=== PATIENT | male | born 1965 | race Caucasian/White ===

== ENCOUNTER 2019-08-16 13:12 | Emergency (ER) | payer BC, SELFPAY ==
[2019-08-16 13:22] VITALS: BP 186/103; PULSE 83; RESP 18; TEMP 36.3; O2SAT 98
--- NOTE | 2019-08-16 13:26 | ED.ABDPAIN ---
HPI - Abdominal Pain General Chief Complaint: Abdominal Pain Stated Complaint: abdominal pain Time Seen by Provider: 08/16/19 13:22 Source: patient and RN notes reviewed Mode of arrival: EMS Limitations: no limitations History of Present Illness HPI narrative: A 54 y/o male presents to the ED with severe, worsening, periumbilical ABD pain beginning at 10:30 AM this morning. He states that he has had a umbilical hernia but that today was the first time it began to hurt. He reports associated nausea and vomiting. He notes that he also has a hx of diverticulitis but denies it feeling the same. He also notes that movement aggravates his pain and that he took some Pepto Bismol this morning but denies it alleviating her symptoms. He also denies any diarrhea, cough, nasal congestion, sore throat, lightheadedness, dizziness, hematuria, dysuria, blood in his vomiting, or blood in his stools. MD elicited complaint: abdominal pain Pertinent past history: diverticulitis Onset (ago): hour(s) Pain Consistency: other (worsening) Location: periumbilical Severity: severe Exacerbating factors: movement Relieving factors: nothing Associated symptoms: nausea and vomiting Related Data Allergies Allergy/AdvReac Type Severity Reaction Status Date / Time No Known Allergies Allergy Verified 08/16/19 13:25 Review of Systems Review of Systems: All systems reviewed & are unremarkable except as noted in HPI and below ENT: Denies nasal congestion and Denies sore throat Cardiovascular: Cardiovascular: Denies lightheadedness Respiratory: Respiratory: Denies cough Gastrointestinal: Gastrointestinal: Reports abdominal pain (periumbilical), Denies hematochezia, Denies diarrhea, Reports nausea, Reports vomiting and Denies hematemesis Genitourinary: Genitourinary: Denies hematuria and Denies dysuria Neurologic: Denies dizziness [facility] Past Medical History Medical History (Updated 08/16/19 @ 14:47 by Conner Alfredo PA-C) Arthritis Diverticulitis DM (diabetes mellitus) Hernia Hx of gout Neuropathy Psoriasis Sciatic nerve disease Surgical History Surgical History No history of previous surgery Family History Family History Mother Hypertension Other Diabetes mellitus Social History Social History Smoking status: Never smoker Alcohol intake: current Gender identity (if verbalized by the patient): Male Procedures Other Procedure Procedure 1: Other Procedure: Patient's umbilical hernia was easily reduced manually Course Course Emergency Course: Patient in the room at this time resting comfortably afebrile nontoxic-appearing no distress Vital Signs Vital signs: Vital Signs Temperature 97.3 F L 08/16/19 13:22 Pulse Rate 83 08/16/19 13:22 Respiratory Rate 18 08/16/19 13:22 Blood Pressure 186/103 H 08/16/19 13:22 Pulse Oximetry 98 08/16/19 13:22 Temperature 97.3 F L 08/16/19 13:22 Pulse Rate 83 08/16/19 13:22 Respiratory Rate 18 08/16/19 13:22 Blood Pressure 186/103 H 08/16/19 13:22 Pulse Oximetry 98 08/16/19 13:22 MDM - Abdominal Pain MDM Narrative Medical decision making narrative: Patient with umbilical hernia that was easily reduced with resolution of symptoms will be discharged home no high risk changes in the blood work felt appropriate for outpatient reevaluation agreeing to follow-up as directed provided with reasons to return Lab Data Result diagrams: 08/16/19 13:32 08/16/19 13:32 Labs: Lab Results 08/16/19 08/16/19 Range/Units 13:32 13:32 WBC 7.7 (4.5-10.0) K/mm3 RBC 4.44 L (4.6-6.20) M/mm3 Hgb 14.9 (14.0-18.0) g/dL Hct 39.7 L (42.0-52.0) % MCV 89.4 (80-100) fl MCH 33.6 (26-34) pg MCHC 37.5 H (32-36) g/dl RDW 12.2 (11.5-14.5) % Plt Count 130 L (150-375) k/mm3 MPV
[2019-08-16 13:41] LABS: Basophils Percent Auto 0.5 % (0.2-1.2); Eosinophils Absolute Auto 0.2 K/mm3 (0-0.3); Eosinophils Percent Auto 2.3 % (0-4.4); Hematocrit 39.7 % (42.0-52.0); Hemoglobin 14.9 g/dL (14.0-18.0); Immature Granulocyte Absolute 0.04 K/mm3 (0.00-0.031); Immature Granulocyte Percent A 0.5 % (0-0.5); Immature Platelet Fraction Pct 10.5 % (0.9-11.2); Lymphocytes Absolute Auto 1.45 K/mm3 (0.9-3.2); Lymphocytes Percent Auto 18.7 % (18.3-44.2); Mean Corpuscular HGB Conc 37.5 g/dl (32-36); Mean Corpuscular Hemoglobin 33.6 pg (26-34); Mean Corpuscular Volume 89.4 fl (80-100); Mean Platelet Volume 11.6 fl (7.4-10.4); Monocytes Absolute Auto 0.5 K/mm3 (0.1-0.6); Monocytes Percent Auto 6.3 % (2.6-8.5); Neutrophils Absolute Auto 5.5 K/mm3 (1.3-6.7); Neutrophils Percent Auto 71.7 % (45.5-73.1); Platelet Count Result 130 k/mm3 (150-375); Red Blood Count 4.44 M/mm3 (4.6-6.20); Red Cell Distribution Width 12.2 % (11.5-14.5); White Blood Count 7.7 K/mm3 (4.5-10.0)
[2019-08-16 13:55] LABS: Alanine Aminotransferase 34 U/L (4-50); Albumin Level 4.8 g/dL (3.5-5.1); Alkaline Phosphatase 53 U/L (38-126); Aspartate Amino Transferase 43 U/L (17-59); Bilirubin,Total 1.7 mg/dL (0.2-1.3); Blood Urea Nitrogen 17 mg/dL (9-20); Calcium 9.4 mg/dL (8.4-10.2); Carbon Dioxide 23 mmol/L (22-30); Chloride 104 mmol/L (98-107); Estimated Glomerular Filt Rate > 60; Glucose 169 mg/dL (75-110); Lipase 103 U/L (23-300); Potassium 4.4 mmol/L (3.4-5.0); Sodium 135 mmol/L (137-145)
[2019-08-16] MEDS: ONDANSETRON INJ 4 MG/2 ML VIAL IV PUSH (13:57)
[2019-08-16] MEDS: SODIUM CHLORIDE 0.9% IV 1,000 ML 999 ML IV CONT (13:57)
[2019-08-16] MEDS: FAMOTIDINE 20 MG/2 ML VIAL IV PUSH (13:57)
[2019-08-16 15:09] VITALS: BP 172/95; PULSE 71; RESP 16; O2SAT 99
[2019-08-16 15:26] LABS: Add Urine Microscopic? YES; Appearance Urine Clear (Clear); Bacteria Urine Trace /hpf; Bilirubin Urine Negative (Negative); Blood Urine Negative (Negative); Color Urine Yellow (Yellow); Glucose Urine UA 1+ mg/dL (Negative); Ketones Urine Negative (Negative); Leukocyte Esterase Ur Negative LEU/UL (Negative); Mucus Urine Moderate /lpf; Nitrate Urine Negative (Negative); Protein Urine Negative (Negative); RBC Urine 0-2 /hpf (0-2); Specific Grav Ur 1.027 (1.001-1.035); Squamous Epithelial Cell Urine Occasional /hpf (Few); Urobilinogen Urine Negative mg/dL (<2.0); WBC Urine 0-3 /hpf
== END 2019-08-16 15:12 | disposition home or self-care (01) ==
PROVIDERS: Emergency Medicine Emergency Medical Services; Emergency Provider Emergency Medicine; PCP Family Medicine
DX: K42.9 Umbilical hernia without obstruction or gangrene (principal); M19.90 Unspecified osteoarthritis, unspecified site; E11.9 Type 2 diabetes mellitus without complications; M10.9 Gout, unspecified; G62.9 Polyneuropathy, unspecified
CPT/HCPCS: 36415; 80053; 81001; 83690; 85025; 85055; 96361; 96374; 96375; 99284; J2405; J7030

== ENCOUNTER 2019-08-22 01:03 | Day surgery (SDC) | payer BC, SELFPAY ==
[2019-08-21 13:51] VITALS: BMI 35.1
--- NOTE | 2019-08-22 13:02 | ECG_ITS ---
Measurements Intervals [place] Rate: 69 P: 38 IN: 160 QRS: -3 QRSD: 82 T: 24 QT: 380 QTc: 408 Interpretive Statements SINUS RHYTHM INFERIOR INFARCT, AGE INDETERMINATE BASELINE ARTIFACT- I, II, AVR, AVL, AVF ABNORMAL ECG Electronically Signed On 08-22-2019 13:23:54 CDT by Dre Whitehead D.O.
[2019-08-22] MEDS: LACTATED RINGERS 1,000 ML 30 ML IV CONT (13:30)
[2019-08-22 13:40] LABS: Glucose Point of Care 110 (65-105)
[2019-08-22 14:23] VITALS: BP 144/88; PULSE 72; RESP 16; TEMP 36.4; O2SAT 100
--- NOTE | 2019-08-22 14:54 | WPDANESEPPF ---
Anes - Initial Pre Proc Eval Procedure: Operation Date: 08/22/19 14:30 Proposed Procedures p Repair Incarcerated Umbilical Hernia with Mesh - Kj Dugan MD Date/Time: 08/22/19 14:54 Surgeon: Kj Dugan MD Pre Op Diagnosis: incarcerated umbilcal hernia Patient Data Age: 54 Gender: M Height: 5 ft 10 in Weight: 109.6 kg Last Vital Signs Temp 36.4 C 08/22/19 14:23 Pulse 72 08/22/19 14:23 Resp 16 08/22/19 14:23 BP 144/88 H 08/22/19 14:23 Pulse Ox 100 08/22/19 14:23 Allergies Allergy/AdvReac Type Severity Reaction Status Date / Time No Known Allergies Allergy Verified 08/22/19 14:22 Home Medications Medication Instructions Recorded Confirmed Type metformin 1,000 mg tablet 1,000 mg PO BID #60 tablet 05/03/19 08/22/19 Rx calcium carbonate 200 mg calcium 200 mg PO .PRN tablet 08/21/19 08/22/19 History (500 mg) chewable tablet ddbvdbsz-czg-whzab acid 300 1 tablet PO DAILY 08/21/19 08/22/19 History mcg-lycopene 600 mcg-lutein 300 mcg tablet Laboratory Tests 08/22/19 13:38 POC Capillary Glucose 110 mg/dl mg/dl (65-105) Patient hx anesthesia problems: none Family hx anesthesia problems: none PMFSH Past Medical History Medical History Arthritis Diverticulitis DM (diabetes mellitus) Hernia Hx of gout Neuropathy Psoriasis Sciatic nerve disease Surgical History Surgical History No history of previous surgery Family History Family History Mother Hypertension Breast cancer Sibling Hypoglycemia Other Diabetes mellitus Social History Social History Smoking status: Never smoker Alcohol intake: current Gender identity (if verbalized by the patient): Male Anes - Eval Final PreProcedure Day of Procedure 08/22/19 14:54 Patient weight: obese Heart: regular rate and rhythm Lungs: clear to auscultation Airway: Mallampati scale class II Neurological: alert and oriented Last oral intake: >/= 8 hours ASA classification: III Emergent: no Anesthetic plan: proceed Anesthesia type and monitoring: general GIVS and standard monitoring Informed Consent: The patient's anesthetic plan and its attendant risks and benefits were discussed with the patient/family/POA. Questions were solicited and answers provided to the satisfaction of the patient/family/POA.
--- NOTE | 2019-08-22 15:44 | SUR.PREOP ---
1410-PT AWARE PRIOR SURGERY DELAYS PT ~1 1/2 HOURS. PT WILL LET DAUGHTER KNOW VIA TEXT. 1545-UP TO BR TO VOID.
--- NOTE | 2019-08-22 15:55 | WPDHPUPDATE1 ---
History and Physical Update Update Date/Time: 08/22/19 15:55 History and Physical has been reviewed, including an updated exam of the patient. There are NO changes in the patient's condition. Risks, benefits, and alternatives have been discussed and questions answered. Patient agrees to proceed with procedure.
[2019-08-22] MEDS: ceFAZolin 2 GM/D5W 50 ML 2 GM/50 ML BAG IVPB (16:02)
--- NOTE | 2019-08-22 16:08 | PM.PROC ---
Procedure Note - Detailed Date of procedure: 08/22/19 Pre-op diagnosis: incarcerated umbilcal hernia IncarceratedUmbilical hernia Post-op diagnosis: same Procedure performed: Umbilical hernia repair with 4.6 cm Parietex underlay mesh Description of procedure: Patient was taken to the operating room and IV sedation was administered. Prep and drape was carried out. The proposed incision along the lower margin of the umbilicus was marked on the skin. Local anesthetic was infiltrated into the skin and the deeper subcutaneous tissues. Incision was made and dissection was carried down through the skin and to the hernia sac. The sac was then dissected free from the umbilical skin and the surrounding subcutaneous tissues. It was dissected down to its neck. Additional local anesthetic was infiltrated into the neck and the fascia surrounding the neck of the hernia sac. The sac was then amputated at its neck. The subcutaneous was undermined around the hernia defect. Additional local was infiltrated around the fascia. I placed a finger inside the hernia defect and checked for any abdominal wall adhesions in the area. None were found. No other hernias were noted. A 4.6 cm Parietex bear [place] was chosen. It was folded and placed in the defect. Once it symmetrically covered the defect, I placed cranial and caudal transfascial sutures of 0 Ethibond. These sutures were placed in such a fashion that, when tied, they would advance the edges of the hernia defect towards 1 another. These sutures were tied and had the desired effect. I then closed the hernia defect with gvkajg-nc-dpjjy mattress sutures of 0 Ethibond. The repair looked quite satisfactory. I then infiltrated additional local all around the areas of the repair. The umbilical skin was tacked to the fascia with 3 0 Vicryl suture. The subcutaneous was closed with 3 0 Vicryl. Subcuticular interrupted 4 O Vicryl skin stitches were placed. The skin was then closed with running 4 0 Monocryl subcuticular suture. Wound was dressed with Exofin surgical adhesive. The patient was awakened and taken to recovery in good condition. Counts were correct x2. Implants: 4.6 cm Parietex hernia mesh Anesthesia: MAC and local (0.5% Marcaine with Exparel) Surgeon: Kj Dugan MD Staff Certified Nurse Midwife: Chata PADILLA Estimated blood loss (mL): 5 Drains: No Packing: No Pathology: none sent Complications: None Condition: stable Disposition: same day Findings: 12 millimeter hernia defect
[2019-08-22 16:55] VITALS: BP 109/65; PULSE 74
[2019-08-22 17:25] VITALS: BP 163/90; PULSE 67
--- NOTE | 2019-08-22 17:29 | SUR.PHASEII ---
1710 Called pt's daughter to update her and she said she will head up here to tow picker
[2019-08-22 17:53] VITALS: BP 154/90; PULSE 61
[2019-08-22 18:16] VITALS: BP 162/84; PULSE 62
== END 2019-08-22 18:22 | disposition home or self-care (01) ==
PROVIDERS: PCP Family Medicine; Visit Provider Surgery
PROC: (CPT 49587; principal; 2019-08-22 14:30)
DX: K42.0 Umbilical hernia with obstruction, without gangrene (principal); E11.40 Type 2 diabetes mellitus with diabetic neuropathy, unspecified; Z79.84 Long term (current) use of oral hypoglycemic drugs; E66.9 Obesity, unspecified; Z68.34 Body mass index [BMI] 34.0-34.9, adult
CPT/HCPCS: 49587; 93005; C1781; C9290; J0690; J2250; J2704; J3010; J7120

== ENCOUNTER 2023-10-24 10:57 | Emergency (ER) | payer OTHER, SELFPAY ==
[2023-10-24 11:10] VITALS: BP 165/88; PULSE 75; RESP 14; TEMP 36.5; O2SAT 100
--- NOTE | 2023-10-24 11:35 | ED.EAR ---
HPI - Ear Problem General Chief complaint: Ear Stated complaint: Bilateral Ear Irritation Source: patient Mode of arrival: ambulatory Limitations: no limitations History of Present Illness HPI Narrative: Patient presents for evaluation of bilateral ear discomfort. Three days ago he noticed a popping sensation his right ear. He experienced increased pressure in the ears with associated muffled hearing. Denies any drainage from the ear. He also has sinus congestion, clear rhinorrhea and nonproductive cough. No fever, chills, nausea, vomiting or diarrhea. no recent sick contacts to his knowledge. He is not taking any medications to assist with the symptoms. Related Data Home Medications Medication Instructions Recorded Confirmed vkekkmcw-jy-gwdnv 300 mcg-K 60 1 tablet PO DAILY 08/21/19 10/24/23 mcg-lycop 600 mcg-lutein 300 mcg tablet (Centrum Silver Ultra Men's) ascorbic acid (vitamin C) 500 mg 500 mg PO DAILY 06/12/21 10/24/23 tablet ferrous sulfate 325 mg (65 mg 325 mg PO DAILY 06/12/21 10/24/23 iron) tablet (Feosol) Allergies Allergy/AdvReac Type Severity Reaction Status Date / Time No Known Allergies Allergy Verified 10/24/23 11:01 Review of Systems Review of Systems: CONSTITUTIONAL: Denies fever, chills, or sweats. EYES: Denies visual changes, redness, or discharge. ENT: Reports sinus congestion, clear rhinorrhea, pressure in the ears, muffled hearing. Denies any sore throat or drainage from the ears. CARDIOVASCULAR: Denies chest pain, palpitations, or edema. RESPIRATORY: Reports nonproductive cough. Denies shortness of breath. GASTROINTESTINAL: Denies abdominal pain, nausea, vomiting, or diarrhea. GENITOURINARY: Denies dysuria or hematuria. SKIN: Denies rash or itching. MUSCULOSKELETAL: Denies back pain, joint pain, or myalgia. NEUROLOGIC: Reports frontal headache. Denies numbness, dizziness, or weakness. PSYCHIATRIC: Denies anxiety or depression. [facility] Past Medical History Medical History Arthritis BMI over 35 Diverticulitis DM (diabetes mellitus) Hernia Hx of gout Incarcerated umbilical hernia Neuropathy Psoriasis Sciatic nerve disease Surgical History Surgical History No history of previous surgery Family History Family History Mother Hypertension Breast cancer Sibling Hypoglycemia Father Emphysema lung Other Diabetes mellitus Social History Social History Smoking status: Former smoker Second hand tobacco smoke exposure: No Alcohol intake: current Alcohol use details: Occasional/social alcohol use Substance use: never Substance use type: does not use Living arrangements: with family Occupation/Education: occupation Additional occupation/education comments: [employer] Gender identity (if verbalized by the patient): Male Exam Narrative: GENERAL: Well-appearing, well-nourished, and in no acute distress. HEAD: Normocephalic, atraumatic. EYES: PERRLA and EOMI. ENT: Nares clear, no rhinorrhea or epistaxis. Mucous membranes moist. Oropharynx without tonsillar hypertrophy exudate or other lesions. Bilateral tympanic membranes are bulging. NECK: Supple. No adenopathy or masses. No carotid bruits or JVD CHEST: Clear to auscultation. No respiratory distress. No wheezes rales or rhonchi HEART: Regular rate and rhythm. No murmur heard. Normal peripheral pulses. ABDOMEN: Soft, nontender, nondistended, normal active bowel sounds. EXTREMITIES: Normal range of motion. No edema. SKIN: Warm, dry, no rash. NEURO: No focal deficits. Alert and oriented x3. PSYCH: Normal mood and affect. Course Course Emergency Course: This is a 58-year-old male who
== END 2023-10-24 11:35 | disposition home or self-care (01) ==
PROVIDERS: Emergency Provider Nurse Practitioner; PCP Family Medicine
DX: H66.93 Otitis media, unspecified, bilateral (principal); Z87.891 Personal history of nicotine dependence; M19.90 Unspecified osteoarthritis, unspecified site; M10.9 Gout, unspecified; E11.40 Type 2 diabetes mellitus with diabetic neuropathy, unspecified; L40.9 Psoriasis, unspecified
CPT/HCPCS: 99213; G0463

== ENCOUNTER 2024-08-13 12:41 | Emergency (ER) | payer BC, SELFPAY ==
[2024-08-13 12:47] VITALS: BP 149/82; PULSE 78; RESP 19; TEMP 36.3; O2SAT 100
--- NOTE | 2024-08-13 13:07 | ED_ITS ---
HPI - General Adult General Chief complaint: Skin/Abscess/Foreign Body Stated complaint: Left Hand Wound Check Time Seen by Provider: 08/13/24 13:05 Source: patient, RN notes reviewed and old records reviewed Mode of arrival: ambulatory Limitations: no limitations History of Present Illness HPI narrative: 59-year-old male presents to the [facility] with complaints of palmar aspect left hand pain. Just below the thumb. States that started , 3 days ago. Scabbed over area or open area is 0.7 x 0.7 cm. Redness without fluctuance is 1 x 1.25 cm. Area is raised, tender, firm. No fluctuance noted. No drainage noted. Warm to touch full range of motion noted Onset (ago): day(s) (3) Related Data Home Medications ?Medication ?Instructions ?Recorded ?Confirmed ?Last Taken ?Type jmtlcrbh-mq-tajne 300 mcg-K 60 1 tablet PO DAILY 08/21/19 06/06/24 08/21/19 History mcg-lycop 600 mcg-lutein 300 mcg tablet (Centrum Silver Ultra Men's) metformin 500 mg tablet,extended mg PO 08/13/24 Unknown History release 24 hr Allergies Allergy/AdvReac Type Severity Reaction Status Date / Time No Known Allergies Allergy Verified 08/13/24 12:46 Review of Systems 2 Review of Systems: All systems reviewed & are unremarkable except as noted in HPI and below Constitutional: Constitutional: Reports no additional constitutional complaints ENT: Reports system reviewed and no additional complaints, except as documented Cardiovascular: Cardiovascular: Reports no additional cardiovascular complaints, Denies chest pain and Denies dyspnea Respiratory: Respiratory: Reports no additional respiratory complaints, Denies chest congestion, Denies cough and Denies dyspnea Musculoskeletal: Musculoskeletal: Reports as per HPI Integumentary/Breasts: Skin/Breast: Reports as per HPI PMFSH Past Medical History Medical History Uncontrolled diabetes mellitus Elevated blood pressure reading without diagnosis of hypertension BMI over 35 Incarcerated umbilical hernia Hernia Diverticulitis Arthritis Psoriasis Neuropathy DM (diabetes mellitus) Hx of gout Sciatic nerve disease Surgical History Surgical History No history of previous surgery Family History Family History Mother Hypertension Breast cancer Sibling Hypoglycemia Father Emphysema lung Other Diabetes mellitus Social History Social History Smoking status: Former smoker Second hand tobacco smoke exposure: No Alcohol intake: current Alcohol use details: Occasional/social alcohol use Substance use: never Substance use type: does not use Living arrangements: with family Occupation/Education: occupation Additional occupation/education comments: [employer] Gender identity (if verbalized by the patient): Male Comments At the time of my signature, I reviewed and agree with the nursing past medical, surgical, social, and family history. There is no relevant family history pertinent to the patient complaint. Exam 2 Const: General: cooperative, healthy appearing, comfortable, no acute distress, well developed, alert and well nourished Nutritional Appearance: w ell nourished Orientation/consciousness: patient oriented x3 Limitations: no limitations HENMT: Head: normal to inspection Eyes: General: appearance normal, both eyes and all related structures A lignment and Position: alignment normal Neck: Neck: normal visual inspection, full ROM, no lymphadenopathy and no meningeal signs Chest: Chest palpation & inspection: normal inspection of the chest Resp: Effort & Inspection: normal respiratory effort and able to speak in complete sentences Cardio: Rate: regular rate Skin: General skin exam: normal color Neuro: General: patient oriented x3, gait normal, moves all extremities and no meningeal signs Cognition (Neuro): normal cognition Speech: normal speech Gait exam (Neuro): Normal gait present Extrem: General: normal to inspection, full ROM, capillary refill normal and normal gait Left upper extremity: hand normal capillary refill, neuromotor exam normal Details: wrist extension normal, thumb opposition normal, thumb IP flexion normal, thumb ADduction normal and fingers 2-5 ABduction normal, neurosensory exam normal, tenderness of the palm on the radial aspect, vascular exam radial pulse present and normal capillary refill, normal ROM of fingers, warmth and swelling Hand/finger images: 1. 0.7 x 0.7 cm scabbed area, redness 1 x 1.25 firm area, swollen no fluctuance, no discharge. Full range of motion, sensation intact. Does have increased warmth. Not circumferential. Psych: Appearance: grossly normal and well kempt Mental Status: mental status grossly normal Speech and movement: Normal speech and movement present and Clear speech present Affect: normal affect Attitude: cooperative Course Course Level of Care: Express Care Visit Vital Signs Vital signs: Vital Signs Temperature 97.3 F L 08/13/24 12:47 Pulse Rate 78 08/13/24 12:47 Respiratory Rate 19 08/13/24 12:47 Blood Pressure 149/82 H 08/13/24 12:47 Pulse Oximetry 100 08/13/24 12:47 Oxygen Delivery Room Air 08/13/24 12:47 Temperature 97.3 F L 08/13/24 12:47 Pulse Rate 78 08/13/24 12:47 Respiratory Rate 19 08/13/24 12:47 Blood Pressure 149/82 H 08/13/24 12:47 Pulse Oximetry 100 08/13/24 12:47 Oxygen Delivery Room Air 08/13/24 12:47 Reviewed Medical Decision Making MDM Narrative Medical decision making narrative: Patient sitting comfortably in exam room. Nontoxic, vitals stable. Patient in no acute distress Patient presents for Wound for 3 days. Will cover with antibiotic, soaking in warm soapy water Epson salt. Discussed signs did proceed to the emergency room and stressed the importance of following up with primary care provider. Patient verbalized understanding Discharge instructions reviewed with patient, as well as provided in writing per nursing staff. The instructions also include specific and strict return/GO TO THE ER as well as f/u information. All questions have been answered, and the patient deny any further questions with discharge and discharge plan. Some parts of this dictation were generated by voice recognition software and may contain typographical and/or grammatical inaccuracies. Differential Diagnosis Differential Diagnosis: abscess, cellulitis Medical Records Medical records reviewed: Yes I reviewed the external patient's medical records. Vital Signs Vital Signs: Vital Signs Temperature 97.3 F L 08/13/24 12:47 Pulse Rate 78 08/13/24 12:47 Respiratory Rate 19 08/13/24 12:47 Blood Pressure 149/82 H 08/13/24 12:47 Pulse Oximetry 100 08/13/24 12:47 Oxygen Delivery Room Air 08/13/24 12:47 Temperature 97.3 F L 08/13/24 12:47 Pulse Rate 78 08/13/24 12:47 Respiratory Rate 19 08/13/24 12:47 Blood Pressure 149/82 H 08/13/24 12:47 Pulse Oximetry 100 08/13/24 12:47 Oxygen Delivery Room Air 08/13/24 12:47 Reviewed Lab Data Lab results reviewed: Yes I reviewed the patient's lab results. Labs: Reviewed Critical Care Time Critical Care Time Critical Care Time: No Discharge Plan Discharge Clinical Impression: Wound cellulitis Patient Disposition: Home, Self-Care Condition: Stable Instructions: Antibiotic Form, Cellulitis (ED) Additional Instructions: soak twice daily for 15-20 minutes in warm soapy water and Epson salt. Pat dry. Take antibiotic as prescribed follow-up with your primary care provider this week for a wound check for new or worsening symptoms please proceed to the nearest emergency room Patient Language: Welsh Prescriptions: New clindamycin HCl 300 mg capsule 300 mg PO TID 7 Days Qty: 21 0RF Rx Instructions: TAKE WITH 150 MG clindamycin HCl 150 mg capsule 150 mg PO TID 7 Days Qty: 21 0RF Rx Instructions: TAKE WITH 300 MG No Action metformin 500 mg tablet extended release 24 hr PO Centrum Silver Ultra Men's 300-600-300 mcg tablet 1 tablet PO DAILY sildenafil [Viagra] 50 mg tablet 50 mg PO DAILY PRN (Reason: sexual activity) Qty: 10 0RF Rx Instructions: administer 30 minutes to 4 hours before activity (DME) FreeStyle Jennifer 2 Eolia Misc See Rx Instructions .Route Qty: 1 0RF Rx Instructions: As directed (DME) FreeStyle Jennifer 2 Sensor Kit See Rx Instructions .Route Qty: 2 2RF Rx Instructions: As directed Farxiga 10 mg tablet 10 mg PO DAILY Qty: 90 2RF rosuvastatin [Crestor] 10 mg tablet 10 mg PO DAILY Qty: 90 4RF Mounjaro 2.5 mg/0.5 mL pen injector 2.5 mg subcut WEEKLY Qty: 2 2RF Rx Instructions: for 4 weeks gabapentin 300 mg capsule 900 mg PO BID Qty: 90 2RF Rx Instructions: 1 in the a.m and 2 at night Follow-up/Referrals: Stevo Armstrong MD [Primary Care Provider] - 3 Days (express care follow up. Wound check. left hand) Stand Alone Forms: Work/School Release IP Time of Disposition: 13:15
== END 2024-08-13 13:20 | disposition home or self-care (01) ==
PROVIDERS: Emergency Provider Nurse Practitioner; PCP Family Medicine
DX: S61.402A Unspecified open wound of left hand, initial encounter (principal); L03.114 Cellulitis of left upper limb; X58.XXXA Exposure to other specified factors, initial encounter; E11.40 Type 2 diabetes mellitus with diabetic neuropathy, unspecified; M19.90 Unspecified osteoarthritis, unspecified site; L40.9 Psoriasis, unspecified; M10.9 Gout, unspecified
CPT/HCPCS: 99213; G0463

== ENCOUNTER 2024-10-02 11:04 | Outpatient (CLI) | payer BC, SELFPAY ==
[2024-10-02 11:21] LABS: Basophils Absolute Auto 0.1 K/mm3 (0.0-0.1); Basophils Percent Auto 0.7 % (0.2-1.2); Eosinophils Absolute Auto 0.2 K/mm3 (0-0.3); Eosinophils Percent Auto 2.5 % (0-4.4); Hematocrit 36.3 % (42.0-52.0); Hemoglobin 13.3 g/dL (14.0-18.0); Immature Granulocyte Absolute 0.02 K/mm3 (0.00-0.031); Immature Granulocyte Percent A 0.3 % (0-0.5); Immature Platelet Fraction Pct 10.1 % (0.9-11.2); Lymphocytes Absolute Auto 1.45 K/mm3 (0.9-3.2); Lymphocytes Percent Auto 19.8 % (18.3-44.2); Mean Corpuscular HGB Conc 36.6 g/dl (32-36); Mean Corpuscular Hemoglobin 33.7 pg (26-34); Mean Corpuscular Volume 91.9 fl (80-100); Mean Platelet Volume 10.9 fl (7.4-10.4); Monocytes Absolute Auto 0.5 K/mm3 (0.1-0.6); Neutrophils Absolute Auto 5.1 K/mm3 (1.3-6.7); Neutrophils Percent Auto 69.7 % (45.5-73.1); Platelet Count Result 142 k/mm3 (150-375); Red Blood Count 3.95 M/mm3 (4.6-6.20); Red Cell Distribution Width 12.7 % (11.5-14.5); White Blood Count 7.3 K/mm3 (4.5-10.0)
--- OUTSIDE RECORDS SUMMARY | 2024-10-02 11:41 | XMS_ITS | Clinical Summary ---
Author Organization [facility] Address [address] [place] [id number] Care Team Providers Care Auditing Control Clerk Name Role Phone Unavailable Primary Care Provider Unavailabl e Social History Tobacco Use Types Packs/Day Years Used Date Smoking Tobacco: Never Assessed Sex and Gender Information Value Date Recorded Sex Assigned at Not on file Legal Sex Male 5:24 PM CDT Gender Identity Not on file Sexual Orientation Not on file Plan of Treatment Health Maintenance Due Date Last Done Comments Colorectal Cancer Screening Colonoscopy (10 Years) 1964 Annual Physical 02/16/1967 Hepatitis C 02/16/1982 DTaP, Tdap and Td Vaccines ( 1 - Tdap) 02/16/1983 Pneumococcal Vaccine: 50+ Ye ars (1 of 1 - PCV) 02/16/2014 Zoster Vaccines (1 of 2) 02/16/2014 COVID-19 Vaccine ( - 2023-2 5 season) 2024 RSV Immunization or 60+ Years (1 - 1-dose 75+ series) 02/16/2039 Meningococcal B Vaccine Aged Out No l onger eligible based on patient's age to complete this topic Meningococcal Vaccine Aged Out No linda francisco javier eligible based on patient's age to complete this topic RSV Immunizations Under 20 Months Aged Out No longer eligible based on patient's age to complete this topic Additional Health Concerns Infection Onset Date Last Indicated MRSA 06/06/2018 06/06/2018
--- OUTSIDE RECORDS SUMMARY | 2024-10-02 11:41 | XMS_ITS | Clinical Summary ---
Author Organization [facility] [place] [facility] Address [address] [place] [address] Care Team Providers Care Sleever Name Role Phone Unavailable Primary Care Provider Unavailabl e Allergies No known active allergies Medications gabapentin (NEURONTIN) 300 mg capsule TAKE 1 CAPSULE BY MOUTH EVERY MORNING AND 2 CAPSULES BY MOUTH EVERY NIGHT AT BEDTIME 5 Active metFORMIN (GLUCOPHAGE XR) 500 mg Extended Release 24 hour tablet TAKE 4 TABLETS DAILY 5 Active Mounjaro 2.5 mg/0.5 mL Pen Injector ADMINISTER 2.5 MG UNDER THE SKIN WEEKLY FOR 4 WEEKS FOR DIABETES 5 Active RAMIPRIL ORAL Take by mouth. A ctive Active Problems No known active problems Encounters Date Type Department Care Team Description 10/02/2024 10:30 AM CDT Office Visit [facility] [place] Oncology and Hematology - [place] [address] [facility] [address] [place] [address] Jairo Hearn MD Chronic anemia (Primary Dx); Other secondary thrombocytopenia from Last 3 Months Family History Medical History Relation Name Comments Diabetes Brother 1 No Known Problems Brother 2 No Known Problems Brother 3 No Known Problems Child 1 No Known Problems Child 2 No Known Problems Father No Known Problems Mother No Known Problems Sister Relation Name Status Comments Brother 1 Alive Brother 2 Alive Brother 3 Alive Child 1 Alive Child 2 Alive Father Mother Sister Alive Social History Tobacco Use Types Packs/Day Years Used Date Smoking Tobacco: Never Smokeless Tobacco: Never Alcohol Use Standard Drinks/Week Comments Yes 0 (1 standard drink = 0.6 oz pur e alcohol) occasional Sex and Gender Information Value Date Recorded Sex Assigned at Not on file 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 Gender Identity Not on file Sexual Orientation Not on file Last Filed Vital Signs Vital Sign Reading Time Taken Comments Blood Pressure 136/85 10/02/2024 10:09 AM CDT Pulse 71 10/02/2024 10:09 AM CDT Temperature 36.4 C (97.5 F) 10/02/2024 10:09 AM CDT Respiratory Rate 15 10/02/2024 10:0 9 AM CDT Oxygen Saturation 91% 10/02/2024 10: 09 AM CDT Inhaled Oxygen Concentration - - Weight 91.5 kg (201 lb 12.8 oz) 025 10:09 AM CDT Height 177.8 cm (5' 10 ) 10/02/2024 10: 09 AM CDT Body Mass Index 28.96 10/02/2024 10:09 AM CDT Plan of Treatment Upcoming Encounters Date Type Department Care Team (Late st Contact Info) Description 10/31/2024 3:30 PM CDT Office Visit [facility] [place] Oncology and Hematology [facility] [address] [facility] [address] [place] [address] Jairo Hearn MD [address] [facility] [address] [place] [address] Health Maintenance Due Date Last Done Comments DTAP/TDAP/TD VACCINES (1 - Tdap) 02/16/1983 COLORECTAL SCREENING 02/16/2009 Colorectal Cancer Screening 02/16/2009 FIT-DNA Q 3 years 02/16/2009 FIT/FOBT Q 1 year 02/16/2009 Flex Sig/CT Colonography Q 5 years 02/16/2009 ZOSTER VACCINE (1 of 2) 02/16/2014 INFLUENZA VACCINE (#1) 2023 Preventative Visit- Commercial 05/17/2024 RSV VACCINE (60+ or ) (1 - 1-dose 75+ series) 02/16/2039 HEPATITIS B VACCINES Aged Out No long er eligible based on patient's age to complete this topic Insurance BC[employer] BLUE ACCESS/TRUE BLUE PPO
--- OUTSIDE RECORDS SUMMARY | 2024-10-02 11:41 | XMS_ITS | Encounter Summary ---
Author Organization [facility] [employer] [facility] Address [address] [place] [address] Care Team Providers Care Stop Attacher Name Role Phone Unavailable Primary Care Provider Unavailabl e Reason for Referral * Radiology Services (Routine) - Closed Specialty Diagnoses / Procedures Referred By Contac t Referred To Contact Diagnoses Other secondary thrombocytopenia Procedures US ABDOMEN COMPLETE Jairo Hearn MD [address] [place] [address] Phone: tel: fax: [place] [phone] Referral ID Status Reason Start Date Expiration Date V isits Requested Visits Authorized [id number] Closed ST[facility] CTS 10/02/2024 11/02/2025 1 1 Encounter Details Date Type Department Care Team (Late st Contact Info) Description 10/02/2024 10:30 AM CDT Office Visit [facility] Oncology and [place] [address] 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 Oncology and Hematology - [place] [address] [facility] [address] [place] [address] Jairo Hearn MD [address] [facility] [address] [place] [address] Scheduled Orders Name Type Priority Associated Diagnoses Orde r Schedule CBC WITH DIFFERENTIAL Lab Stat Chronic anemia Expected: 10/02/2024, Expires: 10/02/2025 COMPREHENSIVE METABOLIC PANEL Lab Stat Chronic anemia Expected: 10/02/2024, Expires: 10/02/2025 FERRITIN Lab Routine Chronic anemia Expected: 10/02/2024, Expires: 10/02/2025 IRON, TIBC, AND PERCENT SATURATION Lab Routine Chronic anemia Expected: 10/02/2024, Expires: 10/02/2025 VITAMIN B12 AND FOLATE Lab Routine Chronic anemia Expected: 10/02/2024, Expires: 10/02/2025 METHYLMALONIC ACID Lab Routine Chronic anemia Expected: 10/02/2024, Expires: 10/02/2025 TRANSFERRIN RECEPTOR TFR SOLUBLE Lab Routine Chronic anemia Expected: 10/02/2024, Expires: 10/02/2025 US ABDOMEN COMPLETE Imaging Routine Other secondary thrombocytopenia 1 Occurrences starting 10/02/2024 until 10/02/2025 MISCELLANEOUS LAB TEST Lab Routine Other secondary thrombocytopenia Expected: 10/02/2024, Expires: 10/02/2025 documented as of this encounter Visit Diagnoses Diagnosis Chronic anemia- Primary Anemia, unspecified Other secondary thrombocytopenia documented in this encounter
[2024-10-02 12:09] LABS: Alanine Aminotransferase 20 U/L (6-50); Albumin Level 4.8 g/dL (3.5-5.1); Alkaline Phosphatase 46 U/L (38-126); Anion Gap 7 mmol/L (4-12); Aspartate Amino Transferase 36 U/L (17-59); Bilirubin,Total 1.2 mg/dL (0.2-1.3); Blood Urea Nitrogen 16 mg/dL (9-20); Calcium 9.2 mg/dL (8.4-10.2); Carbon Dioxide 29 mmol/L (22-30); Chloride 100 mmol/L (98-107); Estimated Glomerular Filt Rate > 60; Glucose 138 mg/dL (65-110); Iron 102 ug/dL (49-181); Sodium 136 mmol/L (137-145)
[2024-10-02 12:20] LABS: Percent Iron Saturation 40 % (20-50)
[2024-10-02 13:35] LABS: Folic Acid > 20.0 ng/mL (2.76->20); Vitamin B12 > 1000.0 pg/mL (239-931)
[2024-10-05 06:53] LABS: Methylmalonic Acid 99 nmol/L (69-390)
[2024-10-05 12:52] LABS: Soluble Transferrin Receptor 1.91 mg/L (0.76-1.76)
[2024-10-05 22:02] LABS: Platelet Antibody, Direct NEGATIVE (NEGATIVE)
== END 2024-10-02 11:05 | disposition home or self-care (01) ==
LOC: ANHLAB 11:05
PROVIDERS: PCP Family Medicine; Visit Provider Internal Medicine Hematology & Oncology
DX: D64.9 Anemia, unspecified (principal); D69.59 Other secondary thrombocytopenia
CPT/HCPCS: 36415; 80053; 82607; 82728; 82746; 83540; 83550; 83921; 84238; 85025; 85055; 86023

== ENCOUNTER 2024-10-24 07:12 | Outpatient (CLI) | payer BC, SELFPAY ==
--- NOTE | ~2024-10-24 | US_ITS ---
Abdominal Sonogram: Real-time sonographic imaging of the abdomen was performed. Clinical History: Secondary to thrombocytopenia Findings: The liver appears normal with no evidence of mass lesion or bile duct dilatation. Main por azma vein demonstrates normal direction of flow. The spleen is mildly enlarged, measuring 14.1 cm in l ength. The gallbladder is well distended, and appears normal with no evidence of gallstone or wall t hickening. The common bile duct measures 5 mm. The visualized pancreas, aorta, and IVC are unremarka ble. The right kidney measures 12.1 cm in length and the left kidney measures 11.8 cm. There is no hydronephrosis or renal calculus. Impression: Mild splenomegaly. Reviewed, dictated and finalized at location M. Impression: Mild splenomegaly.
--- OUTSIDE RECORDS SUMMARY | 2024-10-24 07:24 | XMS_ITS | Clinical Summary ---
Author Organization [facility] Davidcarmen francisca Marie Address [address] [place] [address] Care Team Providers Care Laundry Tech Name Role Phone Unavailable Primary Care Provider [...] Encounters Date Type Department Care Team Description 10/20/[address] [facility] Oncology and Hematology - [place] [address] [place] [address] Jairo Hearn MD 10/13/[address] [facility] Oncology and Hematology - [place] [address] [place] [address] Jairo Hearn MD 10/05/2024 External Device Data STL ABSTRACTION Provider, Abstract 10/05/2024 External Device Data STL ABSTRACTION Provider, Abstract 10/04/2024 External Device Data STL ABSTRACTION Provider, Abstract 10/04/2024 External Device Data STL ABSTRACTION Provider, Abstract 10/03/2024 External Device Data STL ABSTRACTION Provider, Abstract 10/02/2024 10:30 AM CDT Office Visit 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 Oncology and Hematology - [place] [address] [facility] [address] [place] [address] Jairo Hearn MD [address] [facility] [address] [place] [address] Health Maintenance Due Date Last Done Comments Pre-Diabetes and Diabetes Screening 1965 DTAP/TDAP/TD VACCINES (1 - Tdap) 02/16/1983 COLORECTAL SCREENING 02/16/2009 Colorectal Cancer Screening 02/16/2009 FIT-DNA Q 3 years 02/16/2009 FIT/FOBT Q 1 year 02/16/2009 Flex Sig/CT Colonography Q 5 years 02/16/2009 ZOSTER VACCINE (1 of 2) 02/16/2014 INFLUENZA VACCINE (#1) 2023 RSV VACCINE (60+ or ) (1 - 1-dose 75+ series) 02/16/2039 HEPATITIS B VACCINES Aged Out No long er eligible based on patient's age to complete this topic Procedures Procedure Name Priority Date/Time Associated Diagnosis Comments COMPREHENSIVE METABOLIC PANEL Routine 10/02/2024 4:42 PM CDT TRANSFERRIN RECEPTOR TFR SOLUBLE Routine 10/02/2024 11:37 AM CDT from Last 3 Months Results * COMPREHENSIVE METABOLIC PANEL (10/02/2024 4:42 PM CDT) Blood us Jairo Hearn MD CHEMISTRY ORDERABLES Final Resu lt * TRANSFERRIN RECEPTOR TFR SOLUBLE (10/02/2024 11:37 AM CDT) Blood us Jairo Hearn MD CHEMISTRY ORDERABLES Final Resu lt from Last 3 Months Insurance
--- OUTSIDE RECORDS SUMMARY | 2024-10-24 07:24 | XMS_ITS | Encounter Summary ---
Author Organization [facility] [employer] [facility] Address [address] [place] [address] Care Team Providers Care Thermal Cutter Hand Name Role Phone Unavailable Primary Care Provider Unavailabl e Encounter Details Date Type Department Care Team (Late st Contact Info) Description 10/20/2024 Orders Only [facility] Oncology [facility] [address] [place] [address] Jairo Hearn MD [address] [place] [address] [address] [place] [address] Social History Tobacco Use Types Packs/Day Years Used Date Smoking Tobacco: Never Smokeless Tobacco: Never Alcohol Use Standard Drinks/Week Comments Yes 0 (1 standard drink = 0.6 oz pur e alcohol) occasional Sex and Gender Information Value Date Recorded Sex Assigned at Not on file 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 Gender Identity Not on file Sexual Orientation Not on file documented as of this encounter Plan of Treatment Upcoming Encounters Date Type Department Care Team (Late st Contact Info) Description 10/31/2024 3:30 PM CDT Office Visit [facility] Oncology [facility] [address] [place] [address] Jairo Hearn MD [address] [place] [address] [address] [place] [address] documented as of this encounter Procedures Procedure Name Priority Date/Time Associated Diagnosis Comments TRANSFERRIN RECEPTOR TFR SOLUBLE Routine 10/02/2024 11:37 AM CDT documented in this encounter Results * TRANSFERRIN RECEPTOR TFR SOLUBLE (10/02/2024 11:37 AM CDT) Blood Jairo Hearn MD CHEMISTRY ORDERABLES Final Resu lt documented in this encounter Visit Diagnoses Not on filedocumented in this encounter
== END 2024-10-24 07:13 | disposition home or self-care (01) ==
PROVIDERS: PCP Family Medicine; Visit Provider Internal Medicine Hematology & Oncology
DX: R16.1 Splenomegaly, not elsewhere classified (principal); D69.59 Other secondary thrombocytopenia
CPT/HCPCS: 76700

== ENCOUNTER 2025-02-27 11:43 | Outpatient (CLI) | payer BC, SELFPAY ==
--- NOTE | ~2025-02-27 | XR_ITS ---
EXAMINATION: XR_[id number]_CR, 02/27/2025 12:04 CDT HISTORY: chronic ulcer, right and left foot X MAY COMPARISON: No comparisons available. Findings: No osseous destruction or fracture. Small calcaneal spur Soft tissues unremarkable. Impression: No acute fracture or malalignment. Reviewed, dictated and finalized at location P. Impression: No acute fracture or malalignment.
--- NOTE | ~2025-02-27 | XR_ITS ---
EXAMINATION: XR_[id number]_CR, 02/27/2025 12:04 CDT HISTORY: chronic ulcer, right and left foot COMPARISON: No comparisons available. Findings: No osseous destruction or fracture. Small calcaneal spur Soft tissues unremarkable. Impression: No acute fracture or malalignment. Reviewed, dictated and finalized at location P. Impression: No acute fracture or malalignment.
--- OUTSIDE RECORDS SUMMARY | 2025-02-27 13:49 | XMS_ITS | Clinical Summary ---
Author Organization [facility] Address [address] [place] [address] Care Team Providers Care Analytical Lab Technician Name Role Phone Unavailable Primary Care Provider [...] Vaccines (1 of 2) 02/16/2014 COVID-19 Vaccine (1 - 2023-2 5 season) 2025 Influenza Adult (#1) 2025 RSV Immunization or 60+ Years (1 - [...]
--- OUTSIDE RECORDS SUMMARY | 2025-02-27 13:49 | XMS_ITS | Clinical Summary ---
Author [facility] Address [address] [place] [address] Care Team Providers Care Broke Man Name Role Phone Stevo Armstrong MD Primary Care Provider [phone] Allergies No known active allergies Medications gabapentin [...] Encounters Date Type Department Care Team Description 01/23/2025 External Device Data STL ABSTRACTION Provider, Abstract 01/02/2025 External Device Data STL ABSTRACTION Provider, Abstract from Last 3 Months Family History Medical [...] Date Smoking Tobacco: Never Smokeless Tobacco: Never Tobacco Cessation:Counseling Given: Not Answered Alcohol Use Standard Drinks/Week Comments Yes 0 (1 standard drink = 0.6 oz pur e alcohol) occasional Sex and Gender Information Value Date Recorded Sex Assigned at Not on file 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 Gender Identity Not on file Sexual Orientation Not on file Last Filed Vital Signs Vital Sign Reading Time Taken Comments Blood Pressure 164/93 10/31/2024 3:15 PM CDT Pulse 77 10/31/2024 3:13 PM CDT Temperature 36.5 C (97.7 F) 10/31/2024 3:13 PM CDT Respiratory Rate 15 10/31/2024 3:13 PM CDT Oxygen Saturation 98% 10/31/2024 3:13 PM CDT Inhaled Oxygen Concentration - - Weight 92.3 kg (203 lb 6.4 oz) 10/31/2024 3:13 P M CDT Height 177.8 cm (5' 10) 10/02/2024 10:09 AM CDT Body Mass Index 29.18 10/02/2024 10:09 AM CDT Plan of Treatment Upcoming Encounters Date Type Department Care Team (Late st Contact Info) Description 03/07/2025 3:45 PM CDT Office Visit [facility] Oncology and Hematology [facility] [address] [facility] [address] [place] [address] Jairo Hearn MD [address] [facility] [address] [place] [address] Health Maintenance Due Date Last Done Comments Pre-Diabetes and Diabetes Screening 1965 DTAP/TDAP/TD VACCINES (1 - Tdap) 02/16/1983 COLORECTAL SCREENING 02/16/2009 Colorectal Cancer Screening 02/16/2009 FIT-DNA Q 3 years 02/16/2009 FIT/FOBT Q 1 year 02/16/2009 Flex Sig/CT Colonography Q 5 years 02/16/2009 ZOSTER VACCINE (1 of 2) 02/16/2014 INFLUENZA VACCINE (#1) 2024 RSV VACCINE (60+ or ) (1 - 1-dose 75+ series) 02/16/2039 Insurance [facility] BLUE ACCESS CHOICE Care Teams Broke Man Relationship Specialty Start Date End Date Stevo Armstrong MD [address] [place] [address] PCP - General Family Practice 10/31/24
== END 2025-02-27 11:44 | disposition home or self-care (01) ==
PROVIDERS: PCP Nurse Practitioner Family; Visit Provider Podiatrist Foot & Ankle Surgery
DX: M77.32 Calcaneal spur, left foot (principal); M77.31 Calcaneal spur, right foot
CPT/HCPCS: 73630

== ENCOUNTER 2025-03-06 11:48 | Outpatient (CLI) | payer BC, SELFPAY ==
[2025-03-06 12:02] LABS: Hematocrit 33.4 % (42.0-52.0); Hemoglobin 12.1 g/dL (14.0-18.0); Immature Platelet Fraction Pct 7.4 % (0.9-11.2); Mean Corpuscular HGB Conc 36.2 g/dl (32-36); Mean Corpuscular Hemoglobin 33.5 pg (26-34); Mean Corpuscular Volume 92.5 fl (80-100); Platelet Count Result 134 k/mm3 (150-375); Red Blood Count 3.61 M/mm3 (4.6-6.20); White Blood Count 6.5 K/mm3 (4.5-10.0)
--- OUTSIDE RECORDS SUMMARY | 2025-03-06 14:43 | XMS_ITS | Clinical Summary ---
Author Organization [facility] Address [address] [place] [address] Care Team Providers Care Boiler Tender Name Role Phone Unavailable Primary Care Provider [...] Years (1 - 1-dose 75+ series) 02/16/2039 Hepatitis A Vaccines Aged Out No long er eligible based on patient's age to complete this topic Meningococcal B Vaccine Aged Out No l [...]
--- OUTSIDE RECORDS SUMMARY | 2025-03-06 14:43 | XMS_ITS | Clinical Summary ---
Author Organization [facility] Mack espinosa [facility] Address [address] [facility] [place] [address] Care Team Providers Care Bag Shop Worker Name Role Phone Stevo Armstrong MD Primary Care Provider [phone] Allergies No known active allergies Medications gabapentin [...] Encounters Date Type Department Care Team Description 03/06/2025 Telephone [facility] Oncology and Hematology - [place] [address] [facility] [address] [address] Jairo Hearn MD labs for appt 02/27/2025 External Device Data STL ABSTRACTION Provider, Abstract 01/23/2025 External Device Data STL ABSTRACTION Provider, [...] on file 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 [address] PCP - General Family Practice 10/31/24
--- OUTSIDE RECORDS SUMMARY | 2025-03-06 14:43 | XMS_ITS | Encounter Summary ---
Author Organization [facility] [employer] Address [address] [place] [address] Care Team Providers Care Piano Assembler Name Role Phone Stevo Armstrong MD Primary Care Provider [phone] Reason for Visit * Reason Onset Date Comments labs for appt 03/06/2025 Encounter Details Date Type Department Care Team (Late st Contact Info) Description 03/06/2025 Telephone [facility] Oncology [facility] [address] [facility] [address] [place] [address] Jairo Hearn MD [address] [facility] [address] [place] [address] labs for appt Social History Tobacco Use Types Packs/Day Years Used Date Smoking Tobacco: Never Smokeless Tobacco: Never Alcohol Use Standard Drinks/Week Comments Yes 0 (1 standard drink = 0.6 oz pur e alcohol) occasional Sex and Gender Information Value Date Recorded Sex Assigned at Not on file Legal Sex Male 11:37 AM TOUR GUIDE Gender Identity Not on file Sexual Orientation Not on file documented as of this encounter Miscellaneous Notes * Telephone Encounter - Qing Hunter - 03/06/2025 9:16 AM CDT LVM for patient regarding labs for tomorrow. Patient would need to get those done today for the appointment tomorrow. documented in this encounter Plan of Treatment Upcoming Encounters Date Type Department Care Team (Late st Contact Info) Description 03/07/2025 3:45 PM CDT Office Visit [facility] Oncology and Hematology - [place] [address] [facility] [address] [place] [address] Jairo Hearn MD [address] [facility] [address] [place] [address] documented as of this encounter Visit Diagnoses Not on filedocumented in this encounter Care Teams Piano Assembler Relationship Specialty Start Date End Date Stevo Armstrong MD [address] [place] [address] PCP - General Family Practice 10/31/24 documented as of this encounter
[2025-03-06 16:26] LABS: Iron 117 ug/dL (49-181)
[2025-03-06 16:31] LABS: Anion Gap 8 mmol/L (4-12); Blood Urea Nitrogen 21 mg/dL (9-20); Calcium 9.2 mg/dL (8.4-10.2); Carbon Dioxide 25 mmol/L (22-30); Chloride 103 mmol/L (98-107); Estimated Glomerular Filt Rate > 60; Glucose 143 mg/dL (65-110); Potassium 4.5 mmol/L (3.4-5.0); Sodium 136 mmol/L (137-145)
[2025-03-06 16:42] LABS: Percent Iron Saturation 55 % (20-50)
[2025-03-06 17:11] LABS: Ferritin 204.00 ng/mL (11.1-264)
== END 2025-03-06 11:49 | disposition home or self-care (01) ==
LOC: ANHLAB 11:49
PROVIDERS: PCP Nurse Practitioner Family; Visit Provider Internal Medicine Hematology & Oncology
DX: D64.9 Anemia, unspecified (principal)
CPT/HCPCS: 36415; 80048; 82728; 83540; 83550; 85027; 85055

== ENCOUNTER 2025-04-13 08:30 | Outpatient (RCR) | payer BC, SELFPAY ==
--- NOTE | 2025-01-24 12:28 | OPREHPOC ---
Outpatient Therapy Plan of Care This is a Multidisciplinary Plan of Care that may contain components documented by all disciplines (PT, OT, and ST.) PT Problem 1 PT Problem #1 Knowledge Deficit PT Goal 1 Goal / Goal Update Pt. will demo good understanding of diagnosis and prognosis, HEPs. Target Visit 10 PT Problem 2 PT Problem #2 Pain PT Goal 1 Goal / Goal Update Pt will report?improved pain of 1-2/10 at worst when performing ambulation on uneven surfaces, sitting and standing for longer periods. Target Visit 12 PT Problem 3 PT Problem #3 Impaired Flexibility PT Goal 1 Goal / Goal Update 1. Pt will demo improved hamstrings length to 20 deg bilaterally. 2. Pt will demo WNL for lumbar motions and BLE. Target Visit 10 PT Problem 4 PT Problem #4 Impaired Strength PT Goal 1 Goal / Goal Update 1. Pt will perform 5xSTS within 20 seconds or less indicating improved strength and balance. 2. Pt will perform SLS x 10 seconds or more with improved stability and postural control, indicating improved proprioception, balance and BLE strength. Target Visit 12
--- NOTE | 2025-01-24 12:28 | PTOPEVAL1 ---
Assessment and note entered by Araseli Haro, PT Evaluation Information Assessment Status Evaluation Diagnosis M79.2 ICD-10 Condition Codes (PT) Pain in low back M54.50,Pain in right hip M25.551, Pain in left hip M25.552,Abnormalities of gait and mobility R26.9,Weakness R53.1 Onset September 2024 Subjective Information Pt reports pain to lowback, sides of thighs and from knee down; Denies any falls or trauma to the back. States that he has bilateral flat foot and a h/o diabetes as well as chronic intermittent back pain . However he noticed the pain flared up after going on a cruise last September where he walked barefoot almost all the time; he uses orthotics due to bilateral flat feet but did not wear it during the trip. Pain is persisting and worsening, disrupting sleep and daily activities. BLE numbness and pain (R=L) worse after prolonged position and walking uphill or on uneven surfaces now even if he is wearing the orthosis. He uses thera-gun massager, ibuprofen for pain. He goes to the gym 4x a week, but haven't been to the gym in a month and would like to be able to go back to working out without increased pain. Reported Pain Level Pain Score 5: Self Report Assessment PT Clinical Summary Pt presents to therapy with c/o pain to lateral thigh and legs bilaterally, significant PMHx include diabetes controlled with medications, chronic neuropathic pain, impaired sensation with a recent diabetic ulcer on L foot. He demos significant muscle imbalance, postural impairments , gait deviations and scored 49% on LEFS indicating moderate to severe functional limitation. MD ordered skilled PT for neuropathic pain relief treatment. He will also benefit from flexibility and strengthening exercises, balance and gait training, postural awareness and core stabilization, education on safety and fall prevention techniques. Plan of Care Interventions Check Out for Orthotic/Prosthetic,Electrical Stimulation,Gait Training,Hot Pack/Cold Pack, Manual Therapy,Neuro Re-education,Patient/ Caregiver Education,Therapeutic Activities, Therapeutic Exercise,Ultrasound Other Interventions Neuromuscular Taping PT Services Indicated Yes Treatment Frequency and 2x/wk x 12 visits Duration These treatments will address the objective and functional deficits as defined above. The patient will be advanced safely and appropriately in order for the patient to progress towards his/her prior level of function. Additional exercises will be introduced and as well as a comprehensive home exercise program upon discharge, if needed, ?to ensure carryover of functional gains achieved in the clinic. This treatment plan has been reviewed and agreement upon by the patient.
--- NOTE | 2025-03-08 17:34 | PTOPPROG ---
Assessment and note entered by Araseli Haro, PT Progress Information Assessment Status Progress Diagnosis M79.2 ICD-10 Condition Codes (PT) Pain in low back M54.50,Pain in right hip M25.551, Pain in left hip M25.552,Abnormalities of gait and mobility R26.9,Weakness R53.1 Onset September 2024 Subjective Information Pt reports he is feeling better than when he first started. Still feels some pain to the R side of low back and hip area, not as bad. After the [employer] treated the foot ulcer, he feels like he is walking more steady and less limping. States he is gradually going back to the gym and started back on his routine with lesser weights. However, worst pain goes up to 8-9/10 at end of the day, reduces after he does stretching and using the massage gun. Assessment PT Clinical Summary Pt received 12 treatment sessions and demo excellent progress with therapy and improved functional mobility. However, he continue to experience high pain levels and weakness to quads and ankle muscles which impact safety and risk for falls. He will benefit from continued therapy for progressive strengthening with minimal pain and activity specific training to reduce risk for re- injury and improve safety with household and community navigation. Plan of Care Interventions Check Out for Orthotic/Prosthetic,Electrical Stimulation,Gait Training,Hot Pack/Cold Pack, Manual Therapy,Mechanical Traction,Neuro Re- education,Patient/Caregiver Education,Therapeutic Activities,Therapeutic Exercise,Ultrasound Other Interventions Neuromuscular Taping PT Services Indicated Yes Treatment Frequency and 2x/wk x 10 visits Duration These treatments will address the objective and functional deficits as defined above. The patient will be advanced safely and appropriately in order for the patient to progress towards his/her prior level of function. Additional exercises will be introduced and as well as a comprehensive home exercise program upon discharge, if needed, ?to ensure carryover of functional gains achieved in the clinic. This treatment plan has been reviewed and agreement upon by the patient.
--- NOTE | 2025-03-08 17:34 | OPREHPOC ---
Outpatient Therapy Plan of Care This is a Multidisciplinary Plan of Care that may contain components documented by all disciplines (PT, OT, and ST.) PT Problem 1 PT Problem #1 Knowledge Deficit PT Goal 1 Goal / Goal Update Pt. will demo good understanding of diagnosis and prognosis, HEPs. updated 03/10/2025: Pt will perform return demo of HEPs for flexibility, strength and balance indep with minimal cues. Target Visit 10 PT Problem 2 PT Problem #2 Pain PT Goal 1 Goal / Goal Update Pt will report?improved pain of 1-2/10 at worst when performing ambulation on uneven surfaces, sitting and standing for longer periods. -pt. continue to feel 8/10 at worst downgraded 03/10/2025: Pt will report 4-5/10 at worst at end of the day Target Visit 10 PT Problem 3 PT Problem #3 Impaired Flexibility PT Goal 1 Goal / Goal Update 1. Pt will demo improved hamstrings length to 20 deg bilaterally. - cont on this goal 2. Pt will demo WNL for lumbar motions and BLE. - cont on this goal Target Visit 10 Progress Partially Met PT Problem 4 PT Problem #4 Impaired Strength PT Goal 1 Goal / Goal Update 1. Pt will perform 5xSTS within 20 seconds or less indicating improved strength and balance. upgraded (03/10/2025): pt will perform sit to stand with minimal use of BUE with improved glute activation and BLE weight distribution. 2. Pt will perform SLS x 10 seconds or more with improved stability and postural control, indicating improved proprioception, balance and BLE strength. - met *New Goal: Pt will perform step-up/down on a standard step with 10# weight (5x each LE) with improved ankle stability indicating improved lower body strength. Target Visit 10
--- NOTE | 2025-04-13 09:30 | PTOPDC ---
Assessment and note entered by Araseli Haro, PT Discharge Information Assessment Status Discharge Diagnosis M79.2 ICD-10 Condition Codes (PT) Pain in low back M54.50,Pain in right hip M25.551, Pain in left hip M25.552,Abnormalities of gait and mobility R26.9,Weakness R53.1 Onset September 2024 Subjective Information Reports overall feeling good, he is not feeling the pain and paresthesia from above the knee down like he used to. He still feel some sensations to bilateral balls of his foot only when he is sitting for prolonged periods of time. Usually would go away when he uses the tennis ball to massage feet and the stretches. States his ulcers are almost completely healed. Reported Pain Level Pain Score 0: Self Report Assessment PT Clinical Summary Pt received a total of 22 treatment sessions and demos excellent progress with skilled PT and has met established goals. He reports going back to his workout routine at the gym, significantly reduced pain levels, improved standing and walking tolerance. He is compliant with HEPs; agreeable to DC today. Skilled PT discontinued. Plan of Care PT Services Indicated No
== END 2025-04-13 11:41 | disposition home or self-care (01) ==
LOC: ANHPT 08:30
PROVIDERS: PCP Nurse Practitioner Family; Visit Provider Nurse Practitioner Family
DX: M79.2 Neuralgia and neuritis, unspecified (principal)
CPT/HCPCS: 97014; 97110; 97112; 97140; 97161; 97530; 97750; G0283